=== PATIENT | female | born 1955 | race Caucasian/White ===

== ENCOUNTER → 2017-03-16 | Outpatient (CLI) | payer OTHER, SELFPAY ==
[~2017-03-16] MED LIST: AMANTIDINE; AMIT25; AMIT50; AMOCLA875 PO; AMPDEX10CR PO; Ativan1 MG PO; BUPR150T2 PO; CAFERGOT PO; CALCIUM PO; CIPR500 PO; CLON1; CLON1 PO; CLON2; CLON2 PO; CODBUTACEC PO; CONCERTA; CRUTCH USE; CYAN500; CYCL10 PO; CYTOMEL; DARVOCET; DEXT5; DHEA; DIVA500ER PO; DLPA; DOCU100 PO; ESCI10 PO; ESCI20; ESCI20 PO; ESOM20; ESTMEDA; ESTMEDA PO; FLUT.05NI; FLUV50; FLUV50 PO; GABA100; GABA300; GABA300 PO; HYDACE10B PO; HYDACE5; HYDACE5 PO; KLONOPIN; LEVFLO500 PO; LEVSOD25 PO; LIOT25; LOPE2C; LOPE2C PO; LORA.5 PO; LORA1; LORA1 PO; LORA2 PO; MELA3 PO; METPHE10; METPHE20; METPHE20 PO; METR500 PO; MIRT30; MODA200; MODA200 PO; MULVITA; MULVITMINE; Micro-K10 MEQ; NAPR550 PO; NARDIL; NEURONTIN; OLAN5; OMEP20ER; OMEP20ER PO; OXYACE5T PO; POTCIT5; PRAM.5 PO; PRAMIPEXOLE 0.25 MG; PRAZ2; PREN-16 PO; PRIMROSE; PROACE100; PROACE100 PO; PROM25 PO; PROVIGIL; Percocet 5-3251 EACH PO; QUET100 PO; QUET25; QUET25 PO; RILUTEK 50 MG; RISP1; RISP1 PO; RISP3; RISP4 PO; RIZATRIPTAN; RIZATRIPTAN10 M1; ROFE25; RXHYDACE PO; RXLORA1 PO; RXPROACE PO; RXTRAM50 PO; SYNTHETIC CONJUGATED ESTROGENS B; SYNTHROID; TAMS.4ER PO; TRAM50; TRAM50 PO; VISTARIL; ZIPR40; ZIPR60; ZOLP10; ZOLP12.5
[2017-03-16 20:26] LABS: U Amphetamine Screen DETECTED; U Barbituate Screen Not Detected; U Benzodiazapine Screen Not Detected; U Buprenorphine Screen Not Detected; U Cannabinoids Screen Not Detected; U Cocaine Screen Not Detected; U Methadone Screen Not Detected; U Methamphetamine Screen Not Detected; U Opiates Screen Not Detected; U Oxycodone Screen Not Detected; U Phencyclidine Screen Not Detected; U Propoxyphene Screen Not Detected
== END ==
LOC: LAB SHORT 14:02
PROVIDERS: Nurse Practitioner Psychiatric/Mental Health
DX: Z51.81 Encounter for therapeutic drug level monitoring (principal); Z79.899 Other long term (current) drug therapy

== ENCOUNTER → 2017-11-01 | Outpatient (CLI) | payer OTHER ==
[2017-11-01 18:21] LABS: U Amphetamine Screen DETECTED; U Barbituate Screen Not Detected; U Benzodiazapine Screen DETECTED; U Buprenorphine Screen Not Detected; U Cannabinoids Screen DETECTED; U Cocaine Screen Not Detected; U Methadone Screen Not Detected; U Methamphetamine Screen Not Detected; U Opiates Screen DETECTED; U Oxycodone Screen Not Detected; U Phencyclidine Screen Not Detected; U Propoxyphene Screen Not Detected
== END ==
LOC: LAB SHORT 17:59 → LAB 17:59
PROVIDERS: Psychiatry & Neurology Psychiatry
DX: Z51.81 Encounter for therapeutic drug level monitoring (principal); Z79.899 Other long term (current) drug therapy

== ENCOUNTER → 2017-11-15 | Outpatient (CLI) | payer OTHER ==
[2017-11-15 16:19] LABS: U Amphetamine Screen DETECTED
[2017-11-15 16:20] LABS: U Barbituate Screen Not Detected; U Benzodiazapine Screen Not Detected; U Buprenorphine Screen Not Detected; U Cannabinoids Screen Not Detected; U Cocaine Screen Not Detected; U Methadone Screen Not Detected; U Methamphetamine Screen Not Detected; U Opiates Screen DETECTED; U Oxycodone Screen Not Detected; U Phencyclidine Screen Not Detected; U Propoxyphene Screen Not Detected
== END ==
LOC: LAB 12:50 → LAB SHORT 12:50
PROVIDERS: Psychiatry & Neurology Psychiatry
DX: Z51.81 Encounter for therapeutic drug level monitoring (principal); Z79.899 Other long term (current) drug therapy

== ENCOUNTER → 2018-11-21 | Outpatient (CLI) | payer OTHER ==
[2018-11-21 10:52] LABS: U Amphetamine Screen DETECTED; U Barbituate Screen DETECTED; U Benzodiazapine Screen DETECTED; U Buprenorphine Screen Not Detected; U Cannabinoids Screen Not Detected; U Cocaine Screen Not Detected; U Methadone Screen Not Detected; U Methamphetamine Screen Not Detected; U Opiates Screen Not Detected; U Oxycodone Screen Not Detected; U Phencyclidine Screen Not Detected; U Propoxyphene Screen Not Detected
[2018-11-26 11:07] LABS: AMITRIPTYLINE Negative (Cutoff=100); CLOMIPRAMINE Negative (Cutoff=100); CYCLOBENZAPRINE Positive (.); CYCLOBENZAPRINE CONF 169 ng/mL (Cutoff=100); DESIPRAMINE Negative (Cutoff=100); DOXEPIN Negative (Cutoff=100); IMIPRAMINE Negative (Cutoff=100); NORDOXEPIN Negative (Cutoff=100); NORTRIPTYLINE Negative (Cutoff=100); PROTRIPTYLINE Negative (Cutoff=100); TRICYCLIC ANTIDEP Positive ng/mL (Cutoff=100); TRIMIPRAMINE Negative (Cutoff=100)
== END | disposition home or self-care (01) ==
LOC: LAB SHORT 09:10 → LAB 09:10
PROVIDERS: Psychiatry & Neurology Psychiatry
DX: F90.9 Attention-deficit hyperactivity disorder, unspecified type (principal); Z79.899 Other long term (current) drug therapy
CPT/HCPCS: 80369; G0480; G0481